=== PATIENT | female | born 1960 | race Caucasian/White ===

== ENCOUNTER → 2017-02-09 | Outpatient (CLI) | payer OTHER ==
--- NOTE | 2017-02-09 08:35 | DIAGNOSTIC IMAGING REPORT ---
CT OF THE CHEST WITHOUT IV CONTRAST CLINICAL HISTORY: Interstitial lung disease. COMPARISON STUDY: No previous studies for comparison. CT DOSE: 525.02 mGycm TECHNIQUE: Axial images of the chest were obtained without IV contrast. Images were reviewed in the axial, sagittal, and coronal planes. IV contrast was not administered for this examination. A dose lowering technique was utilized adhering to the principles of ALARA. FINDINGS: No enlarged axillary, mediastinal or hilar lymph nodes are present. Cardiac size is at the upper limits of normal. There is no pericardial effusion. Note is made of several thyroid nodules, the largest of which is a 1.8 cm left lobe nodule. Central airways are patent. A few linear opacities reflect atelectasis. There is no consolidation to suggest pneumonia. There is no subpleural reticulation, honeycombing or traction bronchiectasis. The central airways are patent. There are no suspicious pulmonary nodules. No pneumothorax or pleural effusion is present. The bony thorax and upper abdomen are unremarkable. There is a splenule. IMPRESSION: 1. No acute intrathoracic findings. 2. No CT evidence of interstitial lung disease. 3. Several thyroid nodules which measure up to 1.8 cm. A thyroid ultrasound could be obtained in follow-up. Electronically signed by: Pal Callejas M.D. 02/09/2017 8:34 AM Dictated Date/Time: 02/09/2017 8:22 AM
== END | disposition home or self-care (01) ==
LOC: C.CTS 07:47
PROVIDERS: ATTEND Internal Medicine Rheumatology
DX: J84.9 Interstitial pulmonary disease, unspecified (principal); E04.2 Nontoxic multinodular goiter

== ENCOUNTER → 2017-07-28 | Outpatient (CLI) | payer OTHER | END | disposition home or self-care (01) | LOC: C.LABSPEC 17:07 | PROVIDERS: ATTEND Orthopaedic Surgery | DX: L08.89 Other specified local infections of the skin and subcutaneous tissue (principal) ==

== ENCOUNTER → 2017-07-28 | Outpatient (CLI) | payer OTHER | END | disposition home or self-care (01) | LOC: C.PATHSPEC 17:18 | PROVIDERS: ATTEND Orthopaedic Surgery | DX: L08.89 Other specified local infections of the skin and subcutaneous tissue (principal); E83.59 Other disorders of calcium metabolism ==

== ENCOUNTER → 2017-09-29 | Outpatient (CLI) | payer OTHER | END | disposition home or self-care (01) | LOC: C.LABBC 14:17 | PROVIDERS: ATTEND Nurse Practitioner Adult Health | DX: Z00.00 Encounter for general adult medical examination without abnormal findings (principal); E03.9 Hypothyroidism, unspecified; E78.5 Hyperlipidemia, unspecified ==